=== PATIENT | female | born 1950 | race Caucasian/White ===

== ENCOUNTER 2023-09-01 13:58 | Outpatient (CLI) | payer MEDICARE, BC, SELFPAY | END 2023-09-01 13:59 | disposition home or self-care (01) | PROVIDERS: PCP Family Medicine; Visit Provider Family Medicine | DX: E03.9 Hypothyroidism, unspecified (principal); Z13.228 Encounter for screening for other metabolic disorders | CPT/HCPCS: 80048; 84443 ==